=== PATIENT | male | born 1985 | race Caucasian/White ===

== ENCOUNTER 2021-10-16 14:38 | Emergency (ER) | payer SELFPAY ==
[2021-10-16 15:32] VITALS: BP 139/82; PULSE 106; TEMP 98.2; BMI 32.5
[2021-10-16] MEDS ORDERED: SODIUM CHLORIDE 0.9% 500 ML INFUS.BAG IV ONE (17:11)
[2021-10-16 17:42] LABS: BASO % 0.6 % (0-2.0); EOS % 1.1 % (0-4.5); HEMATOCRIT 46.2 % (35.4-49); HEMOGLOBIN 15.8 GM/dL (11.7-16.9); MCH 30.4 pg (25.7-33.7); MCHC 34.3 g/dl (32.0-35.9); MEAN CELL VOLUME 88.7 fl (80-96); MEAN PLT VOLUME 9.9 fl (7.5-11.1); MONO % 7.8 % (3.8-10.2); NEUT % 55.5 % (42.8-82.8); PLATELET COUNT 224 10^3/uL (134-434); RBC 5.21 M/mm3 (4.00-5.60); RDW 13.6 % (11.9-15.9); WHITE BLOOD COUNT 7.9 K/mm3 (4.0-10.0)
[2021-10-16 17:45] LABS: PH,URINE 5.5 (5.0-8.0); URINE APPEARANCE CLEAR; URINE BILIRUBIN NEGATIVE (NEGATIVE); URINE COLOR YELLOW; URINE GLUCOSE (UA) 3+ (NEGATIVE); URINE KETONE 3+ (NEGATIVE); URINE LEUK ESTERASE NEGATIVE (NEGATIVE); URINE NITRITE NEGATIVE (NEGATIVE); URINE PROTEIN NEGATIVE (NEGATIVE); URINE UROBILINOGEN 0.2 mg/dL (0.2-1.0)
[2021-10-16 18:07] LABS: CHLORIDE 98 mmol/L (98-107); SODIUM 134 mmol/L (136-145)
[2021-10-16 18:09] LABS: CALCIUM 9.6 mg/dL (8.5-10.1)
[2021-10-16 18:10] LABS: ALBUMIN 4.6 g/dl (3.4-5.0); ANION GAP 12 MMOL/L (8-16); BLOOD UREA NITROGEN 18.1 mg/dL (7-18); CO2 23 mmol/L (21-32)
[2021-10-16 18:13] LABS: CREATININE 0.8 mg/dL (0.55-1.3); SGOT/AST 39 U/L (15-37); SGPT/ALT 69 U/L (13-61)
[2021-10-16 18:15] LABS: BILIRUBIN,TOTAL 0.6 mg/dL (0.2-1); TOT PROT 8.9 g/dl (6.4-8.2)
[2021-10-16 18:16] LABS: ALK PHOS 127 U/L (45-117)
[2021-10-16] MEDS ORDERED: INSULIN (NOVOLOG) ASPART 100 UNITS/ML 10ML VIAL SQ ONE (18:21)
[2021-10-16 18:54] LABS: GLUCOSE,RANDOM 500 mg/dL (74-106)
[2021-10-16] MEDS ORDERED: metFORMIN HCL 500 MG TABLET (FP) PO ONE (20:08)
[2021-10-16] MEDS ORDERED: metFORMIN HCL 500 MG TABLET (FP) ONE ×3 (20:25→20:39)
== END 2021-10-16 20:47 | disposition home or self-care (01) ==
LOC: JER 14:38
DX: E11.65 Type 2 diabetes mellitus with hyperglycemia (principal)
CPT/HCPCS: 36415; 80053; 81003; 82010; 82962; 83036; 85025; 87086; 93005; 93010; 99284-25